=== PATIENT | male | born 1980 | race Caucasian/White ===

== ENCOUNTER 2025-08-19 11:06 | Emergency (ER) | payer OTHER, SELFPAY ==
--- OUTSIDE RECORDS SUMMARY | 2025-08-18 11:04 | XMS_ITS | Encounter Summary ---
Author Organization [facility] Address [address] [place] [address] Care Team Providers Care Director Of Quality Improvement Name Role Phone Unavailable Primary Care Provider Unavailabl e Reason for Visit * Reason Comments Knee Injury Left Encounter Details Date Type Department Care Team (Late st Contact Info) Description 08/18/2025 11:04 AM CDT - 08/18/2025 12:[address] [facility] Emergency Medicine [address] [phone] Demetrius Arshad MD [address] [phone] Redness and swelling of knee (Primary Dx); Knee injury, left, initial encounter; Elevated uric acid in blood Discharge Disposition: Acute Care Hospital Social History Tobacco Use Types Packs/Day Years Used Date Smoking Tobacco: Every Day Cigarettes Tobacco Cessation:Ready to Q uit: Not Asked; Counseling Given: Not Answered Alcohol Use Standard Drinks/Week Comments Yes 0 (1 standard drink = 0.6 oz pur e alcohol) Food Insecurity Answer Date Recorded Do you find you are eating l ess than you should because you can t pay for food? No 08/18/2025 Transportation Needs Answer Date Record ed Have you gone without health care because you didn t have a way to get there? Or worry about transportation for future doctor visits, pickle solution maker medication, etc.? No 2024 Housing Stability Answer Date Recorded Do you worry you won t have a steady place to sleep or struggle to pay rent or mortgage? No 08/18/2025 Utility Needs Answer Date Recorded Do you have difficulty payin g for utility costs (electric, water or gas bills)? No 08/18/2025 Medication Needs Answer Date Recorded Have you skipped taking medi cation due to cost or worry you can t afford new medications? No 08/18/2025 Feeling Safe Answer Date Recorded Are you in a relationship wi th someone who hurts you emotionally and/or physically? 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 Gender Identity Not on file Sexual Orientation Not on file documented as of this encounter Last Filed Vital Signs Vital Sign Reading Time Taken Comments Blood Pressure 143/99 08/18/2025 12:30 PM CDT Pulse 71 08/18/2025 12:30 PM CDT Temperature 36.4 C (97.5 F) 08/18/2025 11:07 AM CDT Respiratory Rate 15 08/18/2025 12:30 PM CDT Oxygen Saturation 96% 08/18/2025 12:30 PM CDT Inhaled Oxygen Concentration - - Weight 77.4 kg (170 lb 9.6 oz) 08/18/2025 11:07 AM CDT Height 182.9 cm (6') 08/18/2025 11:07 AM CDT Body Mass Index 23.14 08/18/2025 11:07 AM CDT documented in this encounter Medications at Time of Discharge QUEtiapine (SEROquel) 100 mg tablet Take 100 mg by mouth daily at bedtime. documented as of this encounter ED Notes * Fredo Pritchett RN - 08/18/2025 12:46 PM CDT Report called to WILLIS aMc at [facility] ER at 1228. All necessary paperwork signed. POV transfer paperwork provided to patient. Patient exited ER with and all belongings at 1242. * Fredo Pritchett RN - 08/18/2025 11:14 AM CDT Devon Yates 45 y.o. male, arrived to the ED via TRANSPORTATION: private vehicle for complaintsof Chief Complaint Patient presents with Knee Injury Left This patient arrives with his girlfriend for complaints of a Left Knee Injury. Patient ambulates toroom with limp favoring LLE. 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 States his pain has been present and unchanged since the incident. Reports he is unable to bend the knee due to pain. Pain is reported to be at the Anterior Patella wit hout radiation. Vitals taken, patient placed on monitor, clothing removed as needed per policy, privacy provided to patient. Respiratory: WDL - Regular rhythm, symmetrical chest expansion, no dyspnea, Cardiac/Circulatory: WDL - No numbness or tingling, no chest pain , Skin: WDL - Normal color for ethnicity, skin intact, patient is Alert and Oriented x4, pain scale: 6/10, findings; bleeding: without any bleeding noted. Behavior during evaluation: appropriate. Belongings secured, patient Weaponsassessment: denied possession of any weapons or firearms at this time. Patient comforted, all questions answered to the best of the staff's ability, education performed, and left patient in the room with the call light in reach, bed in lowest position, wheels locked, side rails up. * Demetrius Arshad MD - 08/18/2025 11:04 AM CDT 08/18/25 12:30 PM HISTORY OF PRESENT ILLNESS History of Present Illness This is a patient with a history of gout presenting with left knee pain. The patient sustained an injury to his left knee approximately 2 weeks ago when he attempted to dismount from his scooter, resulting in a fall. The incident occurred on a Sunday, and by the followingSunday, his knee had become swollen. Despite the swelling, he managed to work on but was unable to do so on Sunday and Sunday. Since the incident, he has experienced progressive difficulty in walking due to the pain. He also reports a specific area on his knee that is extremely sensitive to touch, causing significant discomfort. His mobility is further compromised as he is unable to bend his knee without experiencing significant pain. However, he can bear weight on the leg if it little ins straight. The patient endorsed that at times he had swollen great toe or elbow, however doesn't have any history of diagnosed gout. He reports consuming about five beers a day and smokes half a pack of cigarettes per day. He also uses marijuana. SOCIAL HISTORY The patient vapes and smokes about half a pack of cigarettes a day. He drinks about five beers a day and uses marijuana. PAST MEDICAL HISTORY REVIEWED MEDICAL: Patient has no past medical history on file. SURGICAL: Patient has no past surgical history on file. ALLERGIES Penicillins PHYSICAL EXAM INITIAL VS BP: (!) 160/109 (08/18/25 110), Heart Rate: 87 bpm (08/18/251106), Resp: 15 (08/18/251106), Pulse: 80 (08/18/25 1130), Temp: 97.5 ??F (36.4 ??C) (08/18/251106), Temp src: Temporal (08/18/251106), SpO2: 97 % (08/18/251106), Height: 6' (182.9 cm) (08/18/251106), Weight: 77.4 kg (170 lb 9.6 oz)(08/18/25 110), BMI (Calculated): 23.14 (08/18/251106) No LMP for male patient. Blood pressure (!) 143/99, pulse 71, temperature 97.5 ??F (36.4 ??C), temperature source Temporal, resp. rate 15, height 6' (1.829 m), weight 77.4 kg (170 lb 9.6 oz), SpO2 96%. Physical Exam Constitutional: General: He is in acute distress. Appearance: Normal appearance. He is normal weight. He is not ill-appearing. HENT: Mouth/Throat: Mouth: Mucous membranes are moist. Eyes: Extraocular Movements: Extraocular movements intact. Pupils: Pupils are equal, round, and reactive to light. Cardiovascular: Rate and Rhythm: Normal rate and regular rhythm. Pulses: Normal pulses. Pulmonary: Effort: Pulmonary effort is normal. No respiratory distress. Musculoskeletal: General: Swelling and tenderness present. Comments: Left knee joint swelling, erythema, heat, inability to flex the knee, unable to bear weight. DP palpable. Sensation in left foot intact. Skin: Capillary Refill: Capillary refill takes less than 2 seconds. Findings: Erythema (left knee) present. Neurological: General: No focal deficit present. Mental Status: He is alert and oriented to person, place, and time. Sensory: No sensory deficit. Gait: Gait abnormal. DIAGNOSTICS LAB: CBC WITH DIFFERENTIAL - Abnormal Result Value WBC 6.2 RBC 5.87 HEMOGLOBIN 18.4 (*) HEMATOCRIT 55.5 (*) MCV 94.5 (*) MCH 31.3 MCHC 33.2 RDW 13.2 RDW-STDEV 46.5 PLATELETS 278 MPV 9.0 (*) NEUTROPHILS 67 LYMPHOCYTES 21 (*) MONOCYTES 10 EOSINOPHILS 1 BASOPHILS 1 IMMATURE GRANULOCYTES 0 NEUTROPHIL ABSOLUTE 4.13 LYMPHOCYTE ABSOLUTE 1.27 MONOCYTE ABSOLUTE 0.60 EOSINOPHIL ABSOLUTE 0.08 BASOPHILS ABSOLUTE 0.06 IMMATURE GRANULOCYTES ABSOLUTE 0.02 COMPREHENSIVE METABOLIC PANEL - Abnormal SODIUM 140 POTASSIUM 4.7 CHLORIDE 104 CO2 29 CALCIUM 9.4 BUN 5 (*) CREATININE 0.89 GLUCOSE 87 TOTAL PROTEIN 6.3 (*) ALBUMIN 4.0 BILIRUBIN TOTAL 0.4 ALKALINE PHOSPHATASE 74 AST 14 ALT 12 GFR >60 ANION GAP 7 C-REACTIVE PROTEIN - Abnormal CRP 6.5 (*) URIC ACID - Abnormal URIC ACID 7.1 (*) SEDIMENTATION RATE - Normal ESR (SEDIMENTATION RATE) 3 LACTIC ACID - Normal LACTIC ACID 1.4 RADIOLOGY: XR KNEE 3 VW LEFT Radiologist Impression IMPRESSION: Please see below. Exam: XR KNEE 3 VW LEFT Date/Time of Exam: 08/18/2025 11:25 AM Reason For Exam: Fall. Diagnosis: See Reason for Exam. Findings: There are no comparisons. There is mild prepatellar and suprapatellar soft tissue swelling with a small joint effusion present. There is no evidence for fracture or dislocation. No periosteal reaction is noted. No lytic, blastic or destructive lesion is noted. No significant arthritic change is appreciated. No radiopaque foreign body or soft tissue gas is noted. EKG: Results Laboratory Studies Uric acid level is elevated at 7.1. WBC and ESR wnl. CRP is slightly elevated at 6.5. Imaging X-ray of the knee showed no fracture, but some fluid and inflammation of the soft tissue. Results independently interpreted by Demetrius Arshad MD PROCEDURES Procedures MEDICAL DECISION MAKING AND PLAN OF CARE Assessment & Plan Initial Assessment: Left knee pain with limited range of motion, warmth, redness, and swelling. Potential septic joint or septic arthritis. Elevated uric acid level suggesting gouty arthritis. Differential Diagnosis: - Septic arthritis: Limited range of motion, warmth, redness, swelling. Plan: Referral to creative specialist for joint fluid analysis. - Gouty arthritis: Elevated uric acid level, history of swollen large toe and elbow. Plan: Avoid alcohol and certain foods, consider medications post- orthopedic evaluation. ED Course: - X-ray: No fractures, fluid accumulation, soft tissue inflammation. - Blood test: Elevated uric acid level (7.1). - Consultation with creative specialist Dr. Gardiner. Final Assessment: Left knee pain with potential septic arthritis or gouty arthritis. X-ray showed fluid accumulation and soft tissue inflammation. Elevated uric acid level. Referral to creative specialist for further evaluation. Clinical Impression: - Left knee pain - Potential septic arthritis to rule out. - Gouty arthritis is possible Disposition: - Transfer: ER to ER by POV to tap the joint to rule out septic joint. There is possibility that this is gout flare, however without any history of gout, and the symptoms progressively getting worse and the current presentation, unable to rule out septic joint, as there is no ability to process thefluid at this facility. Patient has been accepted for [facility] ER to ER transfer. Patient is in agreement with theplan. Patient Education: Avoid alcohol and certain foods that can precipitate gout attacks. Importance of follow-up with primary doctor for gout management. Medical Decision Making Amount and/or Complexity of Data Reviewed Labs: ordered. Radiology: ordered. Clinical Scoring & Consults . New Prescriptions for this Encounter LAST VS BP: (!) 143/99 (08/18/25 1230), Heart Rate: 87 bpm (08/18/25 1107), Resp: 15 (08/18/25 1230), Pulse: 71 (08/18/25 1230), Temp: 97.5 ??F (36.4 ??C) (08/18/25 1107), Temp src: Temporal (08/18/25 1107),SpO2: 96 % (08/18/25 1230) CLINICAL IMPRESSION Diagnoses Diagnosis Comment Added By Time Added Redness and swelling of knee [M25.469, R23.8] Day, Demetrius Bashir MD 08/18/2025 12:27 PM Knee injury, left, initial encounter [S89.92XA] Demetrius Arshad MD 08/18/2025 12:27 PM Elevated uric acid in blood [E79.0] Demetrius Arshad MD 08/18/2025 12:28 PM DISPOSITION, EDUCATION AND MEDICATION RECONCILIATION Medications reconciled. See after visit summary for patient education on discharged patients. ED Disposition ED Disposition Transfer Condition Stable User Deemtrius Arshad MD Date/Time SunAug 18, 2025 12:27 PM Comment -- documented in this encounter Plan of Treatment Not on file documented as of this encounter Procedures Procedure Name Priority Date/Time Associated Diagnosis Comments LACTIC ACID Stat 08/18/2025 11:30 AM CDT CBC WITH DIFFERENTIAL Stat 08/18/2025 11:30 AM CDT SEDIMENTATION RATE Stat 08/18/2025 11 :30 AM CDT C-REACTIVE PROTEIN Stat 08/18/2025 11 :30 AM CDT URIC ACID Stat 08/18/2025 11:30 AM CDT COMPREHENSIVE METABOLIC PANEL Stat 08/18/2025 11:30 AM CDT XR KNEE 3 VW LEFT Stat 08/18/2025 11: 25 AM CDT documented in this encounter Results * (ABNORMAL) URIC ACID (08/18/2025 11:30 AM CDT) URIC ACID 7.1(H) 3.4 - 7.0 mg/dL 08/18/2025 12:20 PM CDT [facility] Blood Collection / Unknown 08/18/2025 11:30 AM CDT 08/18/2025 11:39 AM CDT us Demetrius Arshad MD CHEMISTRY ORDERABLES Final Resu lt [facility] CLIA # [id number] [address] [place] [address] [phone] * LACTIC ACID (08/18/2025 11:30 AM CDT) LACTIC ACID 1.4 <=2.0 mmol/L 08/18/2025 11:56 AM CDT [facility] Blood BLOOD SPECIMEN / Unknown Collection / Unknown 08/18/2025 11:30 AM CDT 08/18/2025 11:39 AM CDT us Demetrius Arshad MD CHEMISTRY ORDERABLES Final Resu lt Performing Organization Address City/[facility]/ZIP Co de Phone Number [facility] CLIA # [id number] [address] [place] [phone] * (ABNORMAL) C-REACTIVE PROTEIN (08/18/2025 11:30 AM CDT) Pathologist [facility] CRP 6.5(H) <5.0 mg/L 08/18/2025 12:00 PM CDT [facility] Blood Collection / Unknown 08/18/2025 11:30 AM CDT 08/18/2025 11:39 AM CDT us Demetrius Arshad MD CHEMISTRY ORDERABLES Final Resu lt [facility] CLIA # [id number] [address] [place] [phone] * (ABNORMAL) COMPREHENSIVE METABOLIC PANEL (08/18/2025 11:30 AM CDT) Pathologist [facility] SODIUM 140 136 - 145 mmol/L 08/18/2025 12:00 PM CDT [facility] POTASSIUM 4.7 3.5 - 5.1 mmol/L 08/18/2025 12:00 PM CDT [facility] CHLORIDE 104 98 - 107 mmol/L 08/18/2025 12:00 PM [facility] CO2 29 22 - 29 mmol/L 08/18/2025 12:00 PM [facility] CALCIUM 9.4 8.6 - 10.0 mg/dL 08/18/2025 12:00 PM [facility] BUN 5(L) 6 - 20 mg/dL 08/18/2025 12:00 PM [facility] CREATININE 0.89 0.67 - 1.17 mg/dL 08/18/2025 12:00 PM [facility] GLUCOSE 87 74 - 99 mg/dL 08/18/2025 12:00 PM [facility] TOTAL PROTEIN 6.3(L) 6.6 - 8.7 g/dL 08/18/2025 12:00 PM [facility] ALBUMIN 4.0 3.5 - 5.2 g/dL 08/18/2025 12:00 PM [facility] BILIRUBIN TOTAL 0.4 0.0 - 1.2 mg/dL 08/18/2025 12:00 PM [facility] ALKALINE PHOSPHATASE 74 40 - 129 U/L 08/18/2025 12:00 PM [facility] AST 14 0 - 50 U/L 08/18/2025 12:00 PM [facility] ALT 12 0 - 50 U/L 08/18/2025 12:00 PM [facility] GFR >60 >=60 mL/min/1.7 3 sq meter 08/18/2025 12:00 PM [facility] Comment:eGFR calculated with 2020 CKD-EPI equation. Vegetarian diet, extremely high or low muscle mass, and may affect results. Cystatin C with Glomerular Filtration Rate is a suitable alternative for these patients. ANION GAP 7 5 - 20 mmol/L 08/18/2025 12:00 PM [facility] Blood Collection / Unknown 08/18/2025 11:30 AM CDT 08/18/2025 11:39 AM CDT Demetrius Arshad MD CHEMISTRY ORDERABLES Final Resu lt [facility] CLIA # [id number] [address] [place] [address] [phone] * SEDIMENTATION RATE (08/18/2025 11:30 AM CDT) ESR (SEDIMENTATION RATE) 3 0 - 15 mm/Hr 08/18/2025 11:51 AM CDT [facility] Blood Collection / Unknown 08/18/2025 11:30 AM CDT 08/18/2025 11:39 AM CDT [facility] - 08/18/2025 11:51 AM CDT Tube Lot: #[id number] Exp Date: 10/28/2026 QC1 LOT [id number] EXP.11/02/2025 QC2 LOT [id number] EXP.11/02/2025 Demetrius Arshad MD HEMATOLOGY ORDERABLES Final Res ult Performing Organization Address [facility]/ZIP Co de Phone Number [facility] CLIA # [id number] [address] [place] [phone] * (ABNORMAL) CBC WITH DIFFERENTIAL (08/18/2025 11:30 AM CDT) Pathologist [facility] WBC 6.2 4.2 - 9.1 K/uL 08/18/2025 11:46 AM CDT [facility] RBC 5.87 4.63 - 6.08 M/uL 08/18/2025 11:46 AM CDT [facility] HEMOGLOBIN 18.4(H) 13.7 - 17.5 g/dL 08/18/2025 11:46 AM T [facility] HEMATOCRIT 55.5(H) 40.1 - 51.0 % 08/18/2025 11:46 AM [facility] MCV 94.5(H) 79.0 - 92.2 fL 08/18/2025 11:46 AM CDT [facility] MCH 31.3 25.7 - 32.2 pg 08/18/2025 11:46 AM [facility] MCHC 33.2 32.3 - 36.5 g/dL 08/18/2025 11:46 AM [facility] RDW 13.2 11.0 - 14.5 % 08/18/2025 11:46 AM [facility] RDW-STDEV 46.5 36.9 - 56.9 fL 08/18/2025 11:46 AM [facility] PLATELETS 278 130 - 400 K/uL 08/18/2025 11:46 AM [facility] MPV 9.0(L) 10.0 - 14.8 fL 08/18/2025 11:46 AM [facility] NEUTROPHILS 67 34 - 68 % 08/18/2025 11:46 AM [facility] LYMPHOCYTES 21(L) 22 - 53 % 08/18/2025 11:46 AM [facility] MONOCYTES 10 5 - 12 % 08/18/2025 11:46 AM [facility] EOSINOPHILS 1 1 - 7 % 08/18/2025 11:46 AM [facility] BASOPHILS 1 0 - 1 % 08/18/2025 11:46 AM [facility] IMMATURE GRANULOCYTES 0 % 08/18/2025 11:46 AM [facility] NEUTROPHIL ABSOLUTE 4.13 1.78 - 5.38 K/uL 08/18/2025 11:46 AM [facility] LYMPHOCYTE ABSOLUTE 1.27 1.20 - 3.40 K/uL 08/18/2025 11:46 AM [facility] MONOCYTE ABSOLUTE 0.60 0.30 - 0.82 K/uL 08/18/2025 11:46 AM [facility] EOSINOPHIL ABSOLUTE 0.08 0.04 - 0.54 K/uL 08/18/2025 11:46 AM [facility] BASOPHILS ABSOLUTE 0.06 0.01 - 0.08 K/uL 08/18/2025 11:46 AM [facility] IMMATURE GRANULOCYTES ABSOLUTE 0.02 K/uL 08/18/2025 11:46 AM [facility] Blood Collection / Unknown 08/18/2025 11:30 AM CDT 08/18/2025 11:39 AM CDT us Demetrius Arshad MD HEMATOLOGY ORDERABLES Final Res ult [facility] CLIA # [id number] [address] [place] [phone] * XR KNEE 3 VW LEFT (08/18/2025 11:25 AM CDT) Anatomical Region Laterality Modality Lower Extremity Computed Radiogr aphy 08/18/2025 11:2 5 AM CDT Impressions 08/18/2025 11:30 AM CDT IMPRESSION: Please see below. Exam: XR KNEE 3 VW LEFT Date/Time of Exam: 08/18/2025 11:25 AM Reason For Exam: Fall. Diagnosis: See Reason for Exam. Findings: There are no comparisons. There is mild prepatellar and suprapatellar soft tissue swelling with a small joint effusion present. There is no evidence for fracture or dislocation. No periosteal reaction is noted. No lytic, blastic or destructive lesion is noted. No significant arthritic change is appreciated. No radiopaque foreign body or soft tissue gas is noted. Narrative Procedure Note Aparna Mobley MD - 08/18/2025 IMPRESSION: Please see below. Exam: XR KNEE 3 VW LEFT Date/Time of Exam: 08/18/2025 11:25 AM Reason For Exam: Fall. Diagnosis: See Reason for Exam. Findings: There are no comparisons. There is mild prepatellar and suprapatellar soft tissue swelling with a small joint effusion present. There is no evidence for fracture or dislocation. No periosteal reaction is noted. No lytic, blastic or destructive lesion is noted. No significant arthritic change is appreciated. No radiopaque foreign body or soft tissue gas is noted. us Demetrius Arshad MD DIAGNOSTIC IMAGING ORDERABLES F inal Result documented in this encounter Visit Diagnoses Diagnosis Redness and swelling of knee- Primary Knee injury, left, initial encounter Elevated uric acid in blood Other abnormal blood chemistry documented in this encounter
--- OUTSIDE RECORDS SUMMARY | 2025-08-18 19:58 | XMS_ITS | Encounter Summary ---
Author Organization [facility] Address [address] [place] [address] Care Team Providers Care Beef Specialist Name Role Phone Unavailable Primary Care Provider Unavailabl e Reason for Visit * Reason Comments Knee Injury Pt was sent here by Bronson Lopez due to left knee injury they want an ortho consult on. Encounter Details Date Type Department Care Team (Late st Contact Info) Description 08/18/2025 7:58 PM CDT - 08/18/2025 7:59 PM CDT Emergency [facility] Emergency Department [address] [place] [address] Discharge Disposition: Eloped After Seeing Provider Social History Tobacco Use Types Packs/Day Years Used Date Smoking Tobacco: Every Day Cigarettes Alcohol Use Standard Drinks/Week Comments Yes 0 [...] worry about transportation for future doctor visits, olive picker medication, etc.? 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 Gender Identity Not on file Sexual Orientation Not on file documented as of this encounter Last Filed Vital Signs Vital Sign Reading Time Taken Comments Blood Pressure 157/120 08/18/2025 2:44 PM CDT Pulse - - Temperature 36.5 C (97.7 F) 08/18/2025 2:44 PM CDT Respiratory Rate 18 08/18/2025 2:44 PM CDT Oxygen Saturation 99% 08/18/2025 2:44 PM CDT Inhaled Oxygen Concentration - - Weight 77.1 kg (170 lb) 08/18/2025 2:44 PM CDT Height 182.9 cm (6') 08/18/2025 2:44 PM CDT Body Mass Index 23.06 08/18/2025 2:44 PM CDT documented in this encounter Medications at Time of Discharge QUEtiapine (SEROquel) 100 mg tablet Take 100 mg by mouth daily at bedtime. documented as of this encounter ED Notes * Leticia Funez RN - 08/18/2025 7:57 PM CDT Patient called in all three waiting rooms multiple times with no answer. Patient did not notify staff that they were leaving. Refusal of services form signed. * Leticia Funez RN - 08/18/2025 7:50 PM CDT Nax 3 @ 1950 * Melquiades Flynn APRN - 08/18/2025 2:47 PM CDT 45-year-old male presents for evaluation of left knee pain and swelling x 4 days. States he fell off a scooter and sustained immediate pain to his left knee. Notes worsening pain and swelling since then. Patient seen at another facility, where x-rays were performed, and he was directed to present to the emergency department for concern of septic joint. Vitals: 08/18/25 1444 BP: (!) 157/120 Resp: 18 Temp: 97.7 ??F (36.5 ??C) SpO2: 99% Exam: Constitutional: Alert and oriented with no apparent distress. Respiratory: No obvious signs of respiratory distress. Neuro: Alert and oriented X3. Psych: Cooperative. Normal mood and affect. Musculoskeletal: Left knee erythematous, swollen, warm, and tender. Pain Scale 6/10 A medical screening exam was initiated in our triage area tailored to the patient's chief complaint. Focused diagnostics and therapies have been initiated. ER staff will continue and expand as appropriate to help identify any life or limb threatening conditions while awaiting an exam room in the main area of the ED. Continued care, evaluation and management of this patient will be performed throughout their stay. I advised patient to inform front desk receptionist nurse of any change in symptoms. The patient's evaluation and anticipated ongoing care plan was discussed in detail with them to make sure theyare aware of what to expect during their stay. documented in this encounter Plan of Treatment Not on file documented as of this encounter Visit Diagnoses Not on filedocumented in this encounter
[2025-08-19 11:15] VITALS: BP 155/105; PULSE 82; TEMP 36.5; O2SAT 97; BMI 23.0
--- NOTE | 2025-08-19 11:24 | XR_ITS ---
WS: [id number] Left knee, 3 views, 08/19/2025 Clinical Data: injury Comparison: None. Findings: No fractures or dislocations are seen. There is minimal medial joint compartment narrowing. The patella is intact. The soft tissues are unremarkable. XR/XR knee LT 3V* [id number] Impression: 1. Negative for fracture. 2. Medial joint compartment narrowing.
--- NOTE | 2025-08-19 11:25 | ED_ITS ---
HPI - Extremity Problem General: Chief complaint: Extremity Injury, Lower Stated complaint: L knee pain Time Seen by Provider: 08/19/25 11:21 Source: patient Mode of arrival: ambulatory Limitations: no limitations History of Present Illness: 45-year-old male states that he fell off his scooter roughly 2 weeks ago and twisted his left knee. He states has been having left knee pain since then along with swelling. States that hurts to ambulate on it is improved with rest rates his pain a 2 out of 10 currently denies any other injuries from the fall denies any ankle or hip pain Related Data Allergies Allergy/AdvReac Type Severity Reaction Status Date / Time Penicillins Allergy Unknown Verified 08/19/25 11:20 Review of Systems Musc: Reports: extremity pain Physical Exam Const: COMMON NORMALS: no acute distress, patient oriented x3 and healthy appearing HENMT: COMMON NORMALS: normocephalic and atraumatic HEAD & SCALP: normocephalic and atraumatic Eye: COMMON NORMALS: conjunctivae normal CONJUNCTIVA: Yes conjunctivae normal Neck/C-Spine: COMMON NORMALS: full ROM and supple Chest: COMMONS NORMALS: normal inspection of the chest Resp: COMMON NORMALS: normal respiratory effort Cardio: COMMON NORMALS: regular rate RATE: regular rate Extremity: NARRATIVE EXTREMITY EXAM: Tenderness noted to left knee with swelling no warmth to touch no pain with range of motion Neuro: COMMON NORMALS: patient oriented x3, moves all extremities and no focal motor deficits Psych: COMMON NORMALS: mental status grossly normal, Normal thought process present and cooperative THOUGHT PROCESS: Normal thought process present Skin: COMMON NORMALS: no rashes or lesions noted and no wounds GENERAL SKIN EXAM: no rashes or lesions noted Course Vital Signs: Vital signs: Vital Signs Temperature 97.7 F 08/19/25 11:15 Pulse Rate 82 08/19/25 11:15 Blood Pressure 141/111 08/19/25 11:27 Pulse Oximetry 99 08/19/25 11:27 Oxygen Delivery Me thod Room Air 08/19/25 11:27 MDM - Extremity (Nontraumatic) Medical Decision Making Patient presents here with left knee sprain from a fall. Differential includes septic joint, tibial plateau fracture. X-ray here is normal no signs of fracture. He has full range of motion with no pain no warmth no signs of septic joint here. Patient likely has a knee sprain with possible ligamentous injury will place him in a knee immobilizer will get him crutches he is to only weight- bear as tolerated we will get him follow-up with orthopedics I did go over his imaging and follow-up with him he is return if worsening he understands agrees to plan Medical Records I reviewed the patient's medical records. All radiology interpretation(s) finalized by discharge ED provider radiology interpretation(s): xr L knee: no acute fx Discharge Plan Discharge Patient Disposition: Home Clinical Impression: Left knee sprain Qualifiers: Encounter type: initial encounter Involved ligament of knee: unspecified ligament Qualified Code(s): S83.92XA - Sprain of unspecified site of left knee, initial encounter Condition: Stable Discharge Orders: Discharge ED (Routine); Ordered 08/19/25 Ordered By: Faustino Oconnor Referrals: Deshawn Fragoso MD [Physician, Orthopedics] - 4-7 days Discharge Diet: Advance as tolerated Discharge Activity: Use walker/crutches as instructed Patient Instructions: Knee Sprain (ED) Print Language: Ethiopian Coding Level of Care Code ED Eviscerator for Nano Smith
[2025-08-19 11:27] VITALS: BP 141/111; O2SAT 99
[2025-08-19] MEDS: HYDROcodone-acetaminophen 5-325 mg Tablet 1 TAB PO (11:58)
[2025-08-19 12:01] VITALS: BP 136/101; PULSE 78; RESP 16; O2SAT 100
--- OUTSIDE RECORDS SUMMARY | 2025-08-19 12:42 | XMS_ITS | Encounter Summary ---
Author Organization [facility] Address [address] 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
--- OUTSIDE RECORDS SUMMARY | 2025-08-19 12:42 | XMS_ITS | Encounter Summary ---
Author Organization [facility] Address [address] [place] [address] Care Team Providers Care Digital Advertising Specialist Name Role Phone Unavailable Primary Care Provider Unavailabl e Encounter Details Date Type Department Care Team (Latest Contact Info) Description 03/23/2005 Outpatient Historical [facility] [address] 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
--- OUTSIDE RECORDS SUMMARY | 2025-08-19 12:42 | XMS_ITS | Encounter Summary ---
Author Organization [facility] Address [address] [place] [address] Care Team Providers Care Set Up Mechanic Name Role Phone Unavailable Primary Care Provider Unavailabl e Encounter Details Date Type Department Care Team (Late st Contact Info) Description 03/23/2005 Outpatient Historical [facility] [address] 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
--- OUTSIDE RECORDS SUMMARY | 2025-08-19 12:42 | XMS_ITS | Encounter Summary ---
Author Organization [facility] Address [address] [place] [address] Care Team Providers Care Gripper Installer Name Role Phone Unavailable Primary Care Provider Unavailabl e Reason for Visit * Reason Comments Med Refill Encounter Details Date Type Department Care Team (Late Contact Info) Description 05/09/2024 Refill [facility] [address] [place] [address] Cely Gould FNP [address] [place] [address] Episodic mood disorder (HCC) Social History Tobacco Use Types Packs/Day Years Used Date Smoking Tobacco: Every Day Cigarettes Smokeless Tobacco: Never Alcohol Use Standard Drinks/Week Comments Defer 0 (1 standard drink = 0.6 oz pur e alcohol) PHQ-2 Answer Date Recorded PHQ-2 Score 6 01/23/2024 Sex and Gender Information Value Date Recorded Sex Assigned at Not on file Legal Sex Male 1:18 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 Gender Identity Not on file Sexual Orientation Not on file documented as of this encounter Plan of Treatment Upcoming Encounters Date Type Department Care Team (Late st Contact Info) Description 09/02/2025 3:00 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 Office Visit [facility] [address] [place] [id number] Cely Gould FNP [address] [place] [phone] (work) documented as of this encounter Visit Diagnoses Diagnosis Episodic mood disorder Unspecified episodic mood disorder documented in this encounter Additional Health Concerns Health Status Noted Date Alive and well 02/10/2024 Assessment Noted Time PHQ-9 Depression Total Score: 13 024 2:45 PM CDT A fall risk assessment has been complete d for the patient 02/10/2024 3:57 PM CDT documented as of this encounter
--- OUTSIDE RECORDS SUMMARY | 2025-08-19 12:42 | XMS_ITS | Clinical Summary ---
Author Organization [facility] Address [address] [place] [address] Care Team Providers Care Binding Folder Machine Name Role Phone Unavailable Primary Care Provider Unavailabl e Medications prazosin (MINIPRESS) 1 mg capsuleIndicati ons:Nightmares Take 1 capsule (1 mg total) by mouth nightly. 30 capsule 2 07/09/20 25 Active QUEtiapine (SEROQUEL) 100 mg tabletIndicatio ns:Episodic mood disorder Take 1 tablet (100 mg total) by mouth nightly. 30 tablet 5 07/09/20 25 Active FLUoxetine (PROzac) 10 mg capsuleIndicati ons:Anxiety Take 1 capsule (10 mg) po am x one week, then take 2 capsules (20mg) po am 60 capsule 1 07/09/20 25 Active topiramate (TOPAMAX) 50 mg tabletIndicatio ns:Episodic mood disorder,Alcoho l dependence with unspecified alcohol-induced disorder (HCC) TAKE ONE TABLET BY MOUTH TWICE DAILY IN THE MORNING & EVENING DIRECTED 60 tablet 08/16/20 25 Active topiramate (TOPAMAX) 50 mg tabletIndicatio ns:Episodic mood disorder,Alcoho l dependence with unspecified alcohol-induced disorder (HCC) Take 1 tablet (50 mg total) by mouth in the morning and 1 tablet (50 mg total) in the evening. 60 tablet 07/09/20 25 025 Discontinued Active Problems No known active problems Encounters Date Type Department Care Team Description 08/14/2025 Refill [facility] [address] [place] [address] [address] [place] [address] Luis Fernando Cely, DEMETRIA Episodic mood disorder; Alcohol dependence with unspecified alcohol-induced disorder (HCC) 07/09/2025 11:30 AM CDT Office Visit [facility] [address] [place], [place] [address] [address] Cely Gould, DISTRICT FIRE MANAGEMENT OFFICER Nightmares (Primary Dx); Episodic mood disorder (HCC); Alcohol dependence with unspecified alcohol-induced disorder (HCC); Anxiety 07/09/2025 Travel from Last 3 Months Immunizations Immunization Administration Dates Next Due DTP 07/24/1983, 0,1978,1977,1978 DTaP (INFANRIX) 07/24/1983, 0,1978,1977,1978 Hep A, adult (HAVRIX, VAQTA) 07/26/2005 Hep B, adult (RECOMBIVAX HB, ENGERIX-B) 08/30/2005,07/26/2005 MMR (M-M-R II) 05/27/1979 Td (adult) (TDVAX) 12/12/2004,07/07/1993 polio, unspecified 07/24/1983, 0,1978,1977 Social History Tobacco Use Types Packs/Day Years Used Date Smoking Tobacco: Every Day Cigarettes 0.5 25.8 Started: 1999 Smokeless Tobacco: Never Tobacco Cessation:Ready to Q uit: No; Counseling Given: Yes Comments:Patient encouraged to stop smoking Alcohol Use Standard Drinks/Week Comments Defer 0 (1 standard drink = 0.6 oz pur e alcohol) PHQ-2 Answer Date Recorded PHQ-2 Score 0 07/09/2025 Sex and Gender Information Value Date Recorded Sex Assigned at Not on file Legal Sex Male 1:18 PM LAY OUT DRAFTER Gender Identity Not on file Sexual Orientation Not on file Last Filed Vital Signs Vital Sign Reading Time Taken Comments Blood Pressure 140/94 01/23/2024 2:44 PM CDT Pulse 92 01/23/2024 2:44 PM CDT Temperature 36.1 C (96.9 F) 01/23/2024 2:44 PM CDT Respiratory Rate - - Oxygen Saturation - - Inhaled Oxygen Concentration - - Weight 84.5 kg (186 lb 3.2 oz) 01/23/2024 2:44 P M CDT Height 182.9 cm (6') 01/23/2024 2:44 PM CDT Body Mass Index 25.25 01/23/2024 2:44 PM CDT Plan of Treatment Upcoming Encounters Date Type Department Care Team (Late st Contact Info) Description 09/02/2025 3:00 PM LAY OUT DRAFTER Office Visit [facility] [place] - [facility]al [facility] [address] [place] [phone] Cely Gould, DISTRICT FIRE MANAGEMENT OFFICER [address] [place] [phone] Health Maintenance Due Date Last Done Comments Annual Wellness 1978 Pneumococcal Vaccine: Pediatrics (0 to 5 Years) and At-Risk Patients (6 to 49 Years) (1 of 2 - PCV) 1997 Hepatitis B Vaccines (3 of 3 - 19+ 3-dose series) 01/23/2006 08/30/2005, 07/26/2005 Td, Tdap Vaccines Adult 12/12/2014 12/12/2004, 07/07 Colonoscopy 2023 Influenza Vaccination (#1) 2025 IPV Vaccines Completed 07/24/1983, 10/30, 1978, Additional history exists Hepatitis A Vaccines Aged Out 07/26/2005 No long er eligible based on patient's age to complete this topic HIB Vaccines Aged Out No longer eligi ble based on patient's age to complete this topic HPV Vaccines Aged Out No longer eligi ble based on patient's age to complete this topic Meningococcal Vaccines Aged Out No lo nger eligible based on patient's age to complete this topic RSV Mab Nirsevimab (Beyfortus) <20 months Aged Out No longer eligibl e based on patient's age to complete this topic Rotavirus Vaccines Aged Out No longer eligible based on patient's age to complete this topic Insurance [employer]TER
--- OUTSIDE RECORDS SUMMARY | 2025-08-19 12:42 | XMS_ITS | Encounter Summary ---
Author Organization [employer] [facility] Address [address] [place] [address] Care Team Providers Care Staff Midwife Name Role Phone Unavailable Primary Care Provider Unavailabl e Encounter Details Date Type Department Care Team (Late st Contact Info) Description 02/04/2005 Inpatient Historical HIS IN BED Wood Conley MD [address] [place] [phone] CLOSE SKULL BASE FX-COMA NOS (CMS/HCC) (Primary Dx) Social History Tobacco Use Types Packs/Day Years Used Date Smoking Tobacco: Never Assessed Sex and Gender Information Value Date Recorded Sex Assigned at Not on file 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 Gender Identity Not on file Sexual Orientation Not on file documented as of this encounter Plan of Treatment Not on file documented as of this encounter Procedures Procedure Name Priority Date/Time Associated Diagnosis Comments CBC WITH DIFFERENTIAL Routine 02/06/2005 6:31 AM CDT PHOSPHORUS Routine 02/06/2005 6:31 AM CDT MAGNESIUM LEVEL Routine 02/06/2005 6:31 AM CDT BASIC METABOLIC PANEL Routine 02/06/2005 6:31 AM CDT CBC WITH DIFFERENTIAL Routine 02/04/2005 2:26 PM CDT POC BLOOD GAS, LYTES AND H+H Routine 02/04/2005 7:29 AM CDT CBC WITH DIFFERENTIAL Routine 02/04/2005 6:41 AM CDT BASIC METABOLIC PANEL Routine 02/04/2005 6:41 AM CDT POC BLOOD GAS, LYTES AND H+H Routine 02/04/2005 2:55 AM CDT DIFFERENTIAL, MANUAL Routine 02/04/2005 12:49 AM CDT CBC WITH DIFFERENTIAL Routine 02/04/2005 12:49 AM CDT PROTIME-INR Routine 02/04/2005 12:49 AM CDT ETHANOL LEVEL Routine 02/04/2005 12:49 AM CDT BASIC METABOLIC PANEL Routine 02/04/2005 12:49 AM CDT POC BLOOD GAS, LYTES AND H+H Routine 02/04/2005 12:47 AM CDT documented in this encounter Results * (ABNORMAL) CBC WITH DIFFERENTIAL (02/06/2005 6:31 AM CDT) WBC 9.7 4.5 - 11.0 K/ul INTERFACE SYSTEM RBC 4.16(L) 4.60 - 6.20 Mil/ul INTERFACE SYSTEM HEMOGLOBIN 13.0(L) 14.0 - 18.0 g/dL INTERFACE SYSTEM HEMATOCRIT 38.2(L) 41.0 - 53.0 % INTERFACE SYSTEM MCV 91.8 84.0 - 103.0 Fl INTERFACE SYSTEM MCH 31.3 27.0 - 34.0 pg INTERFACE SYSTEM MCHC 34.0 30.0 - 35.0 g/dL INTERFACE SYSTEM RDW 12.2 11.0 - 14.5 percent(in active) INTERFACE SYSTEM PLATELETS 268 140 - 440 K/ul INTERFACE SYSTEM MPV 9.9 8.9 - 12.8 Fl INTERFACE SYSTEM NEUTROPHILS 79.1(H) 42.2 - 75.2 percent(in active) INTERFACE SYSTEM LYMPHOCYTES 9.2(L) 24.0 - 44.0 percent(in active) INTERFACE SYSTEM MONOCYTES 10.6(H) 2.0 - 10.0 percent(in active) INTERFACE SYSTEM EOSINOPHILS 0.8 0.0 - 7.0 % INTERFACE SYSTEM BASOPHILS 0.3 0.0 - 1.0 percent(in active) INTERFACE SYSTEM NEUTROPHIL ABSOLUTE 7.7 2.0 - 8.0 K/uL INTERFACE SYSTEM LYMPHOCYTE ABSOLUTE 0.9(L) 1.2 - 4.0 K/ul INTERFACE SYSTEM MONOCYTE ABSOLUTE 1.0(H) 0.1 - 0.6 K/ul INTERFACE SYSTEM EOSINOPHIL ABSOLUTE 0.1 0.0 - 0.7 K/ul INTERFACE SYSTEM BASOPHILS ABSOLUTE 0.0 0.0 - 0.2 K/ul INTERFACE SYSTEM 02/06/2005 6:31 AM CDT us Wood Conley MD HEMATOLOGY ORDERABLES Final Result Performing Organization Address City/[facility] de Phone Number INTERFACE SYSTEM Refer to clinic/hospital department * PHOSPHORUS (02/06/2005 6:31 AM CDT) PHOSPHORUS 3.1 2.5 - 4.6 mg/dL (inactive) INTERFACE SYSTEM 02/06/2005 6:31 AM CDT Wood Conley MD CHEMISTRY ORDERABLES Final Result Performing Organization Address [facility] de Phone Number INTERFACE SYSTEM Refer to clinic/hospital department * MAGNESIUM LEVEL (02/06/2005 6:31 AM CDT) MAGNESIUM 1.9 1.6 - 2.3 mg/dL INTERFACE SYSTEM 02/06/2005 6:31 AM CDT Wood Conley MD CHEMISTRY ORDERABLES Final Result Performing Organization Address City/[facility] de Phone Number INTERFACE SYSTEM Refer to clinic/hospital department * (ABNORMAL) BASIC METABOLIC PANEL (02/06/2005 6:31 AM CDT) GLUCOSE 100 70 - 110 mg/dL INTERFACE SYSTEM BUN 6(L) 9 - 20 mg/dL INTERFACE SYSTEM CREATININE 0.8 0.7 - 1.5 mg/dL (inactive) INTERFACE SYSTEM SODIUM 138 136 - 145 mEq/L INTERFACE SYSTEM POTASSIUM 3.9 3.5 - 5.0 mEq/L INTERFACE SYSTEM CHLORIDE 101 95 - 110 mEq/L INTERFACE SYSTEM CO2 27 22 - 32 mmol/l INTERFACE SYSTEM ANION GAP 14 9 - 20 mEq/L INTERFACE SYSTEM OSMOLALITY, CALCULATED 282 275 - 295 mOsm/Kg INTERFACE SYSTEM CALCIUM 8.6 8.4 - 10.5 mg/dL INTERFACE SYSTEM 02/06/2005 6:31 AM CDT us Wood Conley MD CHEMISTRY ORDERABLES Final Result INTERFACE SYSTEM Refer to clinic/hospital department * (ABNORMAL) CBC WITH DIFFERENTIAL (02/04/2005 2:26 PM CDT) WBC 9.6 4.5 - 11.0 K/ul INTERFACE SYSTEM RBC 4.37(L) 4.60 - 6.20 Mil/ul INTERFACE SYSTEM HEMOGLOBIN 13.7(L) 14.0 - 18.0 g/dL INTERFACE SYSTEM HEMATOCRIT 40.0(L) 41.0 - 53.0 % INTERFACE SYSTEM MCV 91.5 84.0 - 103.0 Fl INTERFACE SYSTEM MCH 31.4 27.0 - 34.0 pg INTERFACE SYSTEM MCHC 34.3 30.0 - 35.0 g/dL INTERFACE SYSTEM RDW 12.4 11.0 - 14.5 percent(in active) INTERFACE SYSTEM PLATELETS 249 140 - 440 K/ul INTERFACE SYSTEM MPV 9.7 8.9 - 12.8 Fl INTERFACE SYSTEM NEUTROPHILS 77.5(H) 42.2 - 75.2 percent(in active) INTERFACE SYSTEM LYMPHOCYTES 11.0(L) 24.0 - 44.0 percent(in active) INTERFACE SYSTEM MONOCYTES 11.0(H) 2.0 - 10.0 percent(in active) INTERFACE SYSTEM EOSINOPHILS 0.3 0.0 - 7.0 % INTERFACE SYSTEM BASOPHILS 0.2 0.0 - 1.0 percent(in active) INTERFACE SYSTEM NEUTROPHIL ABSOLUTE 7.5 2.0 - 8.0 K/uL INTERFACE SYSTEM LYMPHOCYTE ABSOLUTE 1.1(L) 1.2 - 4.0 K/ul INTERFACE SYSTEM MONOCYTE ABSOLUTE 1.1(H) 0.1 - 0.6 K/ul INTERFACE SYSTEM EOSINOPHIL ABSOLUTE 0.0 0.0 - 0.7 K/ul INTERFACE SYSTEM BASOPHILS ABSOLUTE 0.0 0.0 - 0.2 K/ul INTERFACE SYSTEM 02/04/2005 2:26 PM CDT Wood Conley MD HEMATOLOGY ORDERABLES Final Result Performing Organization Address [facility] de Phone Number INTERFACE SYSTEM Refer to clinic/hospital department * (ABNORMAL) POC ISTAT EG 7+ (02/04/2005 7:29 AM CDT) SPECIMEN TYPE Arterial INTERF JOVANNA SYSTEM Comment: Tidal volume: 700 PEEP: 05 Rate: 12 Pulse OX: 100 FIO2 40 INTERFACE SYSTEM TEMPERATURE 99.7 DegC INTERFAC E SYSTEM PH 7.36 7.35 - 7.45 Unit INTERFACE SYSTEM PH TEMP CORRECT 7.36 7.35 - 7.45 Unit INTERFACE SYSTEM PCO2 POC 40 35 - 45 mmHg INTERFACE SYSTEM PCO2 TEMP CORRECT 41 35 - 45 mmHg INTERFACE SYSTEM PO2 151(H) 80 - 105 mmHg INTERFACE SYSTEM PO2 TEMP CORRECT 154(H) 80 - 105 mmHg INTERFACE SYSTEM HCO3 (CALC) POC 22.7 22.0 - 26.0 mmol/l INTERFACE SYSTEM BASE EXCESS -3(L) -2 - 3 mmol/l INTERFACE SYSTEM HEMOGLOBIN POC 13.3(L) 13.5 - 18.0 g/dL INTERFACE SYSTEM HEMATOCRIT ABG 39 38 - 51 % INTER FACE SYSTEM O2 SATURATION 99(H) 95 - 98 % INTERF JOVANNA SYSTEM TCO2 (CALC) POC 24 23 - 27 mmol/l INTERFACE SYSTEM SODIUM 140 138 - 146 mEq/L INTERFACE SYSTEM POTASSIUM 3.8 3.5 - 4.9 mEq/L INTERFACE SYSTEM CALCIUM IONIZED 1.20 1.12 - 1.32 mmol/l INTERFACE SYSTEM 02/04/2005 7:29 AM CDT Wood Conley MD POINT OF CARE TESTING COM F inal Result Performing Organization Address City/[facility] Co de Phone Number INTERFACE SYSTEM Refer to clinic/hospital department * (ABNORMAL) BASIC METABOLIC PANEL (02/04/2005 6:41 AM CDT) GLUCOSE 92 70 - 110 mg/dL INTERFACE SYSTEM BUN 5(L) 9 - 20 mg/dL INTERFACE SYSTEM CREATININE 0.8 0.7 - 1.5 mg/dL (inactive) INTERFACE SYSTEM SODIUM 141 136 - 145 mEq/L INTERFACE SYSTEM POTASSIUM 3.8 3.5 - 5.0 mEq/L INTERFACE SYSTEM CHLORIDE 109 95 - 110 mEq/L INTERFACE SYSTEM CO2 21(L) 22 - 32 mmol/l INTERFACE SYSTEM ANION GAP 15 9 - 20 mEq/L INTERFACE SYSTEM OSMOLALITY, CALCULATED 286 275 - 295 mOsm/Kg INTERFACE SYSTEM CALCIUM 7.9(L) 8.4 - 10.5 mg/dL INTERFACE SYSTEM 02/04/2005 6:41 AM CDT us Wood Conley MD CHEMISTRY ORDERABLES Final Result INTERFACE SYSTEM Refer to clinic/hospital department * (ABNORMAL) CBC WITH DIFFERENTIAL (02/04/2005 6:41 AM CDT) WBC 12.6(H) 4.5 - 11.0 K/ul INTERFACE SYSTEM RBC 4.42(L) 4.60 - 6.20 Mil/ul INTERFACE SYSTEM HEMOGLOBIN 14.0 14.0 - 18.0 g/dL INTERFACE SYSTEM HEMATOCRIT 40.2(L) 41.0 - 53.0 % INTERFACE SYSTEM MCV 91.0 84.0 - 103.0 Fl INTERFACE SYSTEM MCH 31.7 27.0 - 34.0 pg INTERFACE SYSTEM MCHC 34.8 30.0 - 35.0 g/dL INTERFACE SYSTEM RDW 12.4 11.0 - 14.5 percent(in active) INTERFACE SYSTEM PLATELETS 279 140 - 440 K/ul INTERFACE SYSTEM MPV 9.6 8.9 - 12.8 Fl INTERFACE SYSTEM NEUTROPHILS 79.4(H) 42.2 - 75.2 percent(in active) INTERFACE SYSTEM LYMPHOCYTES 10.9(L) 24.0 - 44.0 percent(in active) INTERFACE SYSTEM MONOCYTES 9.4 2.0 - 10.0 percent(in active) INTERFACE SYSTEM EOSINOPHILS 0.1 0.0 - 7.0 % INTERFACE SYSTEM BASOPHILS 0.2 0.0 - 1.0 percent(in active) INTERFACE SYSTEM NEUTROPHIL ABSOLUTE 10.0(H) 2.0 - 8.0 K/uL INTERFACE SYSTEM LYMPHOCYTE ABSOLUTE 1.4 1.2 - 4.0 K/ul INTERFACE SYSTEM MONOCYTE ABSOLUTE 1.2(H) 0.1 - 0.6 K/ul INTERFACE SYSTEM EOSINOPHIL ABSOLUTE 0.0 0.0 - 0.7 K/ul INTERFACE SYSTEM BASOPHILS ABSOLUTE 0.0 0.0 - 0.2 K/ul INTERFACE SYSTEM 02/04/2005 6:41 AM CDT Wood Conley MD HEMATOLOGY ORDERABLES Final Result Performing Organization Address [facility] Phone Number INTERFACE SYSTEM Refer to clinic/hospital department * (ABNORMAL) POC ISTAT EG 7+ (02/04/2005 2:55 AM CDT) SPECIMEN TYPE Arterial INTERF JOVANNA SYSTEM Comment: Tidal volume: 700 PEEP: 05 Rate: 14 Pulse OX: 100 FIO2 60 INTERFACE SYSTEM PH 7.41 7.35 - 7.45 Unit INTERFACE SYSTEM PH TEMP CORRECT 7.41 7.35 - 7.45 Unit INTERFACE SYSTEM PCO2 POC 33(L) 35 - 45 mmHg INTERFACE SYSTEM PCO2 TEMP CORRECT 33(L) 35 - 45 mmHg INTERFACE SYSTEM PO2 229(H) 80 - 105 mmHg INTERFACE SYSTEM PO2 TEMP CORRECT 229(H) 80 - 105 mmHg INTERFACE SYSTEM HCO3 (CALC) POC 20.9(L) 22.0 - 26.0 mmol/l INTERFACE SYSTEM BASE EXCESS -4(L) -2 - 3 mmol/l INTERFACE SYSTEM HEMOGLOBIN POC 15.0 13.5 - 18.0 g/dL INTERFACE SYSTEM HEMATOCRIT ABG 44 38 - 51 % INTER FACE SYSTEM O2 SATURATION 100(H) 95 - 98 % INTERF JOVANNA SYSTEM TCO2 (CALC) POC 22(L) 23 - 27 mmol/l INTERFACE SYSTEM SODIUM 136(L) 138 - 146 mEq/L INTERFACE SYSTEM POTASSIUM 3.9 3.5 - 4.9 mEq/L INTERFACE SYSTEM CALCIUM IONIZED 1.14 1.12 - 1.32 mmol/l INTERFACE SYSTEM 02/04/2005 2:55 AM CDT Deshawn Nick MD POINT OF CARE TESTING COM Mary l Result Performing Organization Address City/[facility] Co de Phone Number INTERFACE SYSTEM Refer to clinic/hospital department * PROTIME-INR (02/04/2005 12:49 AM CDT) PROTIME 14.5 12.4 - 14.9 Secs INTERFACE SYSTEM Comment: As of 04 note change in normal range. INR 1.1 INTERFACE SYSTEM Comment: Expected Values for INR: DVT/PE Goal INR 2.5; range 2.0 - 3.0 Valve Replacement Tissue Goal INR 2.5; range 2.0 - 3.0 Mechanical Goal INR 3.0; range 2.5 - 3.5 POST-DC Goal INR 2.5; range 2.0 - 3.0 or Goal 3.0; range 2.5 - 3.5 Atrial Fibrillation Goal INR 2.5; range 2.0 - 3.0 Ischemic Stroke Goal INR 2.5; range 2.0 - 3.0 For additional information see Guidelines for Anticoagulation available from the pharmacy Willa Robertson, Pharm D. 02/04/2005 12:4 9 AM CDT us Deshawn Nick MD HEMATOLOGY ORDERABLES Final Re sult Performing Organization Address [facility] Phone Number INTERFACE SYSTEM Refer to clinic/hospital department * (ABNORMAL) ETHANOL LEVEL (02/04/2005 12:49 AM CDT) ETHANOL 243(H) <=10 mg/dL INTERFACE SYSTEM Comment:Specimen moderately hemolyzed 02/04/2005 12:4 9 AM CDT us Deshawn Nick MD CHEMISTRY ORDERABLES Final Res ult Performing Organization Address [facility] Phone Number INTERFACE SYSTEM Refer to clinic/hospital department * (ABNORMAL) DIFFERENTIAL, MANUAL (02/04/2005 12:49 AM CDT) NEUTROPHILS, SEG 77(H) 36 - 66 % INT ERFACE SYSTEM LYMPHOCYTES 13(L) 24 - 44 percent(coni ctive) INTERFACE SYSTEM MONOCYTE 10 4 - 10 percent(coni ctive) INTERFACE SYSTEM PLATELET EST. Normal Normal INTERF JOVANNA SYSTEM RBC MORPHOLOGY Normal Normal INTER FACE SYSTEM 02/04/2005 12:4 9 AM CDT us Deshawn Nick MD HEMATOLOGY ORDERABLES COM Mary l Result INTERFACE SYSTEM Refer to clinic/hospital department * (ABNORMAL) CBC WITH DIFFERENTIAL (02/04/2005 12:49 AM CDT) WBC 22.6(H) 4.8 - 10.8 K/ul INTERFACE SYSTEM RBC 4.94 4.60 - 6.20 Mil/ul INTERFACE SYSTEM HEMOGLOBIN 15.6 14.0 - 18.0 g/dL INTERFACE SYSTEM HEMATOCRIT 44.7 41.0 - 53.0 % INTERFACE SYSTEM MCV 90.5 84.0 - 103.0 Fl INTERFACE SYSTEM MCH 31.6 27.0 - 34.0 pg INTERFACE SYSTEM MCHC 34.9 30.0 - 35.0 g/dL INTERFACE SYSTEM RDW 12.3 11.0 - 14.5 percent(in active) INTERFACE SYSTEM PLATELETS 322 140 - 440 K/ul INTERFACE SYSTEM MPV 9.8 8.9 - 12.8 Fl INTERFACE SYSTEM NEUTROPHILS 81.2(H) 42.2 - 75.2 percent(in active) INTERFACE SYSTEM LYMPHOCYTES 10.6(L) 24.0 - 44.0 percent(in active) INTERFACE SYSTEM MONOCYTES 7.8 2.0 - 10.0 percent(in active) INTERFACE SYSTEM EOSINOPHILS 0.2 0.0 - 7.0 % INTERFACE SYSTEM BASOPHILS 0.2 0.0 - 1.0 percent(in active) INTERFACE SYSTEM NEUTROPHIL ABSOLUTE 18.3(H) 2.0 - 8.0 K/uL INTERFACE SYSTEM LYMPHOCYTE ABSOLUTE 2.4 1.2 - 4.0 K/ul INTERFACE SYSTEM MONOCYTE ABSOLUTE 1.8(H) 0.1 - 0.6 K/ul INTERFACE SYSTEM EOSINOPHIL ABSOLUTE 0.0 0.0 - 0.7 K/ul INTERFACE SYSTEM BASOPHILS ABSOLUTE 0.0 0.0 - 0.2 K/ul INTERFACE SYSTEM 02/04/2005 12:4 9 AM CDT Deshawn Nick MD HEMATOLOGY ORDERABLES Final Re sult INTERFACE SYSTEM Refer to clinic/hospital department * (ABNORMAL) BASIC METABOLIC PANEL (02/04/2005 12:49 AM CDT) GLUCOSE 129(H) 70 - 110 mg/dL INTERFACE SYSTEM BUN 7(L) 9 - 20 mg/dL INTERFACE SYSTEM CREATININE 1.1 0.7 - 1.5 mg/dL (inactive) INTERFACE SYSTEM SODIUM 143 136 - 145 mEq/L INTERFACE SYSTEM POTASSIUM 3.4(L) 3.5 - 5.0 mEq/L INTERFACE SYSTEM Comment:Specimen moderately hemolyzed CHLORIDE 104 95 - 110 mEq/L INTERFACE SYSTEM CO2 24 22 - 32 mmol/l INTERFACE SYSTEM ANION GAP 18 9 - 20 mEq/L INTERFACE SYSTEM OSMOLALITY, CALCULATED 292 275 - 295 mOsm/Kg INTERFACE SYSTEM CALCIUM 7.8(L) 8.4 - 10.5 mg/dL INTERFACE SYSTEM 02/04/2005 12:4 9 AM CDT Deshawn Nick MD CHEMISTRY ORDERABLES Final Res ult INTERFACE SYSTEM Refer to clinic/hospital department * (ABNORMAL) POC ISTAT EG 7+ (02/04/2005 12:47 AM CDT) SPECIMEN TYPE Arterial INTERF JOVANNA SYSTEM Comment:Pulse OX: 100 FIO2 100 INTERFACE SYSTEM PH 7.34(L) 7.35 - 7.45 Unit INTERFACE SYSTEM PH TEMP CORRECT 7.34(L) 7.35 - 7.45 Unit INTERFACE SYSTEM PCO2 POC 38 35 - 45 mmHg INTERFACE SYSTEM PCO2 TEMP CORRECT 38 35 - 45 mmHg INTERFACE SYSTEM PO2 456(H) 80 - 105 mmHg INTERFACE SYSTEM PO2 TEMP CORRECT 456(H) 80 - 105 mmHg INTERFACE SYSTEM HCO3 (CALC) POC 20.6(L) 22.0 - 26.0 mmol/l INTERFACE SYSTEM BASE EXCESS -5(L) -2 - 3 mmol/l INTERFACE SYSTEM HEMOGLOBIN POC 15.3 13.5 - 18.0 g/dL INTERFACE SYSTEM HEMATOCRIT ABG 45 38 - 51 % INTER FACE SYSTEM O2 SATURATION 100(H) 95 - 98 % INTERF JOVANNA SYSTEM TCO2 (CALC) POC 22(L) 23 - 27 mmol/l INTERFACE SYSTEM SODIUM 137(L) 138 - 146 mEq/L INTERFACE SYSTEM POTASSIUM 3.1(L) 3.5 - 4.9 mEq/L INTERFACE SYSTEM CALCIUM IONIZED 1.13 1.12 - 1.32 mmol/l INTERFACE SYSTEM 02/04/2005 12:4 7 AM CDT us Physician Sj Ed POINT OF CARE TESTING COM Final Result Performing Organization Address City/State/[facility] Co de Phone Number INTERFACE SYSTEM Refer to clinic/hospital department documented in this encounter Visit Diagnoses Diagnosis Closed fracture of base of skull with cerebral laceration and contusion, loss of consciousness of unspecified duration- Primary documented in this encounter
--- OUTSIDE RECORDS SUMMARY | 2025-08-19 12:42 | XMS_ITS | Encounter Summary ---
Author Organization [facility] Address [address] [place] [address] Care Team Providers Care Fixed Income Manager Name Role Phone Unavailable Primary Care Provider Unavailabl e Encounter Details Date Type Department Care Team (Late st Contact Info) Description 03/29/2005 Outpatient Historical [facility] Orthopedics- 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
--- OUTSIDE RECORDS SUMMARY | 2025-08-19 12:42 | XMS_ITS | Encounter Summary ---
Author Organization [facility] Address [address] [place] [address] Care Team Providers Care Quenching Car Operator Name Role Phone Unavailable Primary Care Provider Unavailabl e Reason for Visit * Reason Comments Med Refill Encounter Details Date Type Department Care Team (Late Contact Info) Description 08/14/2025 Refill [facility] [address] [place] [phone] Cely Gould FNP [address] [place] [phone] Episodic mood disorder; Alcohol dependence with unspecified alcohol-induced disorder (HCC) Social History Tobacco Use Types Packs/Day Years Used Date Smoking Tobacco: Every Day Cigarettes 0.5 25.8 Started: 1999 Smokeless Tobacco: Never Comments:Patient encouraged to stop smoking Alcohol Use Standard Drinks/Week Comments Defer 0 (1 standard drink = 0.6 oz pur e alcohol) PHQ-2 Answer Date Recorded PHQ-2 Score 0 07/09/2025 Sex and Gender Information Value Date Recorded Sex Assigned at Not on file 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 Gender Identity Not on file Sexual Orientation Not on file documented as of this encounter Plan of Treatment Upcoming Encounters Date Type Department Care Team (Late Contact Info) Description 09/02/2025 3:00 PM LUMBER BEARER Office Visit [facility] [address] [place] [phone] Cely Gould FNP [address] [place] [phone] documented as of this encounter Visit Diagnoses Diagnosis Episodic mood disorder Unspecified episodic mood disorder Alcohol dependence with unspecified alcohol-induced disorder (HCC) documented in this encounter Additional Health Concerns Health Status Noted Date Alive and well 07/17/2024 Assessment Noted Time PHQ-9 Depression Total Score: 0 07/09/20 25 12:00 PM CDT A fall risk assessment has been complete d for the patient 07/09/2025 12:00 PM CDT documented as of this encounter
--- OUTSIDE RECORDS SUMMARY | 2025-08-19 12:42 | XMS_ITS | Encounter Summary ---
Author Organization [facility] Address [address] [place] [address] Care Team Providers Care Director Industrial Relations Name Role Phone Unavailable Primary Care Provider Unavailabl e Encounter Details Date Type Department Care Team (Latest Contact Info) Description 04/20/2005 Outpatient Historical [facility] Physical Med and Rehab- [address] [address] Audie Espinosa MD [address] [place] [phone] LATE EFFECT INTRACRANIAL INJ (CMS/HCC) (Primary Dx); JOINT DIS NOS-PELVIS Social History Tobacco Use Types Packs/Day Years Used Date Smoking Tobacco: Never Assessed Sex and Gender Information Value Date Recorded Sex Assigned at Not on file 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
--- OUTSIDE RECORDS SUMMARY | 2025-08-19 12:42 | XMS_ITS | Encounter Summary ---
Author Organization [facility] Address [address] [place] [address] Care Team Providers Care Special Forces Medical Sergeant Name Role Phone Unavailable Primary Care Provider Unavailabl e Encounter Details Date Type Department Care Team (Late st Contact Info) Description 02/28/2005 Outpatient Historical [facility] Orthopedics- 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
--- OUTSIDE RECORDS SUMMARY | 2025-08-19 12:42 | XMS_ITS | Encounter Summary ---
Author Organization [facility] Address [address] [place] [address] Care Team Providers Care Physician Office Secretary Name Role Phone Unavailable Primary Care Provider Unavailabl e Reason for Visit * Reason Onset Date Comments Med Refill 06/16/2024 Encounter Details Date Type Department Care Team (Late st Contact Info) Description 06/16/2024 Refill [facility] [place] [facility] [address] [place] [phone] Cely Gould, REGIONAL EDUCATION COORDINATOR [address] [place] [phone] Episodic mood disorder (HCC) Social History Tobacco Use Types Packs/Day Years Used Date Smoking Tobacco: Every Day Cigarettes Smokeless Tobacco: Never Alcohol Use Standard Drinks/Week Comments Defer 0 (1 standard drink = 0.6 oz pur e alcohol) PHQ-2 Answer Date Recorded PHQ-2 Score 6 01/23/2024 Sex and Gender Information Value Date Recorded Sex Assigned at Not on file Legal Sex Male 1:18 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 Gender Identity Not on file Sexual Orientation Not on file documented as of this encounter Miscellaneous Notes * Telephone Encounter - Nilda Villarreal CMA - 06/16/2024 3:35 PM CDT APPT WED documented in this encounter Plan of Treatment Upcoming Encounters Date Type Department Care Team (Late st Contact Info) Description 09/02/2025 3:00 PM MANAGER AUTOMOTIVE Office Visit [facility] [place] [facility] [address] [place] [phone] Cely Gould FNP [address] [place] [phone] documented as of this encounter Visit Diagnoses Diagnosis Episodic mood disorder Unspecified episodic mood disorder documented in this encounter Additional Health Concerns Health Status Noted Date Alive and well 06/18/2024 Assessment Noted Time PHQ-9 Depression Total Score: 13 024 2:45 PM CDT A fall risk assessment has been complete d for the patient 02/10/2024 3:57 PM CDT documented as of this encounter
--- OUTSIDE RECORDS SUMMARY | 2025-08-19 12:42 | XMS_ITS | Clinical Summary ---
Author Organization [facility] Address [address] [address] Phone Care Team Providers Care Screening Tech Name Role Phone Unavailable Primary Care Provider Unavailabl e Allergies Active Allergy Reactions Criticality Noted Date Comments Penicillins Unknown 08/18/2025 Medications QUEtiapine (SEROquel) 100 mg tablet Take 100 mg by mouth daily at bedtime. Active Encounters Date Type Department Care Team Description 08/18/2025 7:58 PM CDT - 08/18/2025 7:59 PM CDT Emergency [facility] [address] [place] [phone] Discharge Disposition: Eloped After Seeing Provider 08/18/2025 11:04 AM CDT - 08/18/2025 12:42 PM CDT [facility] Emergency Medicine [address] [place] [phone] Demetrius Arshad MD Redness and swelling of knee (Primary Dx); Knee injury, left, initial encounter; Elevated uric acid in blood Discharge Disposition: Acute Care Hospital 08/18/2025 Travel from Last 3 Months Immunizations Immunization Administration Dates Next Due (M-M-R II/PRIORIX)(12 MO UP) MEASLES, MUMPS AND RUBELLA VIRUS VACCINE, 0.5 ML IM/SUBCUT 05/27/1979 (TDVAX)(7 YRS UP) TETANUS AN D DIPHTHERIA TOXOIDS, ADSORBED (2 LF OF TETANUS TOXOID AND 2 LF OF DIPHTHERIA TOXOID), 0.5ML (PF), IM 12/12/2004,07/07/1993 Dt Dtp Dtap Vaccine 07/24/1983, 0,1978,1977,1978 Hepatitis A Vaccine 07/26/2005 Hepatitis B Vaccine 08/30/2005,07/26/2005 IPV/OPV 07/24/1983, 0,1978,1977 Social History Tobacco Use Types [...] worry about transportation for future doctor visits, case picker medication, etc.? 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 Gender Identity Not on file Sexual Orientation Not on file Last Filed Vital Signs Vital Sign Reading Time Taken Comments Blood Pressure 157/120 08/18/2025 2:44 PM CDT Pulse 71 08/18/2025 12:30 PM CDT Temperature 36.5 C (97.7 F) 08/18/2025 2:44 PM CDT Respiratory Rate 18 08/18/2025 2:44 PM CDT Oxygen Saturation 99% 08/18/2025 2:44 PM CDT Inhaled Oxygen Concentration - - Weight 77.1 kg (170 lb) 08/18/2025 2:44 PM CDT Height 182.9 cm (6') 08/18/2025 2:44 PM CDT Body Mass Index 23.06 08/18/2025 2:44 PM CDT Plan of Treatment Health Maintenance Due Date Last Done Comments HEPATITIS B VACCINES (1 of 3 - 19+ 3-dose series) 1997 08/30/2005, 07/26/2005 DTAP/TDAP/TD VACCINES (6 - Tdap) 12/13/2004 12/12/2004, 07/07/1993, 07/24/1983, Additional history exists COLORECTAL SCREENING 2023 Colorectal Cancer Screening 2023 FIT-DNA Q 3 years 2023 FIT/FOBT Q 1 year 2023 Flex Sig/CT Colonography Q 5 years 2023 Preventative Visit- Commercial 10/29/2024 INFLUENZA VACCINE (#1) 2025 Procedures Procedure Name Priority Date/Time Associated Diagnosis Comments URIC ACID Stat 08/18/2025 11:30 AM CDT LACTIC ACID Stat 08/18/2025 11:30 AM CDT C-REACTIVE PROTEIN Stat 08/18/2025 11 :30 AM CDT COMPREHENSIVE METABOLIC PANEL Stat 08/18/2025 11:30 AM CDT SEDIMENTATION RATE Stat 08/18/2025 11 :30 AM CDT CBC WITH DIFFERENTIAL Stat 08/18/2025 11:30 AM CDT XR KNEE 3 VW LEFT Stat 08/18/2025 11: 25 AM CDT from Last 3 Months Results * LACTIC ACID (08/18/2025 11:30 AM CDT) LACTIC ACID 1.4 <=2.0 mmol/L 08/18/2025 11:56 AM CDT [facility] Blood BLOOD SPECIMEN / Unknown Collection / Unknown 08/18/2025 11:30 AM CDT 08/18/2025 11:39 AM CDT us Demetrius Arshad MD CHEMISTRY ORDERABLES Final Resu lt [facility] CLIA # [id number] [address] [place] [address] * (ABNORMAL) CBC WITH DIFFERENTIAL (08/18/2025 11:30 AM CDT) WBC 6.2 4.2 - 9.1 K/uL 08/18/2025 11:46 AM [facility] RBC 5.87 4.63 - 6.08 M/uL 08/18/2025 11:46 AM [facility] HEMOGLOBIN 18.4(H) 13.7 - 17.5 g/dL 08/18/2025 11:46 AM [facility] HEMATOCRIT 55.5(H) 40.1 - 51.0 % 08/18/2025 11:46 AM [facility] MCV 94.5(H) 79.0 - 92.2 fL 08/18/2025 11:46 AM [facility] MCH 31.3 25.7 - 32.2 pg 08/18/2025 11:46 AM [facility] MCHC 33.2 32.3 - 36.5 g/dL 08/18/2025 11:46 AM [facility] RDW 13.2 11.0 - 14.5 % 08/18/2025 11:46 AM [facility] RDW-STDEV 46.5 36.9 - 56.9 fL 08/18/2025 11:46 AM [facility] PLATELETS 278 130 - 400 K/uL 08/18/2025 11:46 AM [facility] MPV 9.0(L) 10.0 - 14.8 fL 08/18/2025 11:46 AM [facility] NEUTROPHILS 67 34 - 68 % 08/18/2025 11:46 AM [facility] LYMPHOCYTES 21(L) 22 - 53 % 08/18/2025 11:46 AM T [facility] MONOCYTES 10 5 - 12 % 08/18/2025 11:46 AM T [facility] EOSINOPHILS 1 1 - 7 % 08/18/2025 11:46 AM [facility] BASOPHILS 1 0 - 1 % 08/18/2025 11:46 AM T [facility] IMMATURE GRANULOCYTES 0 % 08/18/2025 11:46 AM T [facility] NEUTROPHIL ABSOLUTE 4.13 1.78 - 5.38 K/uL 08/18/2025 11:46 AM T [facility] LYMPHOCYTE ABSOLUTE 1.27 1.20 - 3.40 K/uL 08/18/2025 11:46 AM [facility] MONOCYTE ABSOLUTE 0.60 0.30 - 0.82 K/uL 08/18/2025 11:46 AM [facility] EOSINOPHIL ABSOLUTE 0.08 0.04 - 0.54 K/uL 08/18/2025 11:46 AM T [facility] BASOPHILS ABSOLUTE 0.06 0.01 - 0.08 K/uL 08/18/2025 11:46 AM [facility] IMMATURE GRANULOCYTES ABSOLUTE 0.02 K/uL 08/18/2025 11:46 AM [facility] Blood Collection / Unknown 08/18/2025 11:30 AM CDT 08/18/2025 11:39 AM CDT us Demetrius Arshad MD HEMATOLOGY ORDERABLES Final Res ult [facility] CLIA # [id number] [address] [place] [address] * SEDIMENTATION RATE (08/18/2025 11:30 AM CDT) ESR (SEDIMENTATION RATE) 3 0 - 15 mm/Hr 08/18/2025 11:51 AM CDT [facility] Blood Collection / Unknown 08/18/2025 11:30 AM CDT 08/18/2025 11:39 AM CDT Narrative [facility] - 08/18/2025 11:51 AM CDT Tube Lot: #[id number] Exp Date: 10/28/2026 QC1 LOT [id number] EXP.11/02/2025 QC2 LOT [id number] EXP.11/02/2025 us Demetrius Arshad MD HEMATOLOGY ORDERABLES Final Res ult [facility] CLIA # [id number] [address] [place] [address] * (ABNORMAL) C-REACTIVE PROTEIN (08/18/2025 11:30 AM CDT) CRP 6.5(H) <5.0 mg/L 08/18/2025 12:00 PM CDT [facility] Blood Collection / Unknown 08/18/2025 11:30 AM CDT 08/18/2025 11:39 AM CDT us Demetrius Arshad MD CHEMISTRY ORDERABLES Final Resu lt Performing Organization Address [facility] Co de Phone Number [facility] CLIA # [id number] [address] [place] [phone] * (ABNORMAL) URIC ACID (08/18/2025 11:30 AM CDT) URIC ACID 7.1(H) 3.4 - 7.0 mg/dL 08/18/2025 12:20 PM CDT [facility] Blood Collection / Unknown 08/18/2025 11:30 AM CDT 08/18/2025 11:39 AM CDT us Demetrius Arshad MD CHEMISTRY ORDERABLES Final Resu lt Performing Organization Address City/[facility]/ZIP Co de Phone Number [facility] CLIA # [id number] [address] [place] [phone] * (ABNORMAL) COMPREHENSIVE METABOLIC PANEL (08/18/2025 11:30 AM T) SODIUM 140 136 - 145 mmol/L 08/18/2025 12:00 PM [facility] POTASSIUM 4.7 3.5 - 5.1 mmol/L 08/18/2025 12:00 PM [facility] CHLORIDE 104 98 - 107 mmol/L 08/18/2025 12:00 PM [facility] CO2 29 22 - 29 mmol/L 08/18/2025 12:00 PM [facility] CALCIUM 9.4 8.6 - 10.0 mg/dL 08/18/2025 12:00 PM [facility] BUN 5(L) 6 - 20 mg/dL 08/18/2025 12:00 PM [facility] CREATININE 0.89 0.67 - 1.17 mg/dL 08/18/2025 12:00 PM [facility] GLUCOSE 87 74 - 99 mg/dL 08/18/2025 12:00 PM [facility] TOTAL PROTEIN 6.3(L) 6.6 - 8.7 g/dL 08/18/2025 12:00 PM [facility] ALBUMIN 4.0 3.5 - 5.2 g/dL 08/18/2025 12:00 PM [facility] BILIRUBIN TOTAL 0.4 0.0 - 1.2 mg/dL 08/18/2025 12:00 PM [facility] ALKALINE PHOSPHATASE 74 40 - 129 U/L 08/18/2025 12:00 PM [facility] AST 14 0 - 50 U/L 08/18/2025 12:00 PM [facility] ALT 12 0 - 50 U/L 08/18/2025 12:00 PM [facility] GFR >60 >=60 mL/min/1.7 3 sq meter 08/18/2025 12:00 PM [facility] Comment:eGFR calculated with 2021 CKD-EPI equation. Vegetarian diet, extremely high or low muscle mass, and may affect results. Cystatin C with Glomerular Filtration Rate is a suitable alternative for these patients. ANION GAP 7 5 - 20 mmol/L 08/18/2025 12:00 PM CDT [facility] Blood Collection / Unknown 08/18/2025 11:30 AM CDT 08/18/2025 11:39 AM CDT us Demetrius Arshad MD CHEMISTRY ORDERABLES Final Resu lt [facility] CLIA # [id number] [address] [place] [address] * XR KNEE 3 VW LEFT (08/18/2025 [...] MD DIAGNOSTIC IMAGING ORDERABLES F inal Result from Last 3 Months Insurance [facility]
--- OUTSIDE RECORDS SUMMARY | 2025-08-19 12:42 | XMS_ITS | Encounter Summary ---
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 Gender Identity Not on file Sexual Orientation Not on file documented as of this encounter Plan of Treatment Not on file documented as of this encounter Procedures Procedure Name Priority Date/Time Associated Diagnosis Comments CBC WITH DIFFERENTIAL Routine 02/13/2005 5:45 AM CDT PHENYTOIN LEVEL, TOTAL Routine 5 5:45 AM CDT HEPATIC FUNCTION PANEL Routine 5 5:45 AM CDT CBC WITH DIFFERENTIAL Routine 02/10/2005 5:45 AM CDT PHENYTOIN LEVEL, TOTAL Routine 200 5 5:45 AM CDT HEPATIC FUNCTION PANEL Routine 5 5:45 AM CDT CBC WITH DIFFERENTIAL Routine 02/08/2005 6:41 AM CDT VITAMIN B12 LEVEL Routine 02/08/2005 6:4 1 AM CDT COMPREHENSIVE METABOLIC PANEL Routine 02/08/2005 6:41 AM CDT URINALYSIS MICROSCOPY ONLY Routine 02/07/2005 10:22 PM CDT URINALYSIS W/REFLEX MICROSCOPIC Routine 02/07/2005 10:22 PM CDT documented in this encounter Results * HEPATIC FUNCTION PANEL (02/13/2005 5:45 AM CDT) ALKALINE PHOSPHATASE 65 38 - 126 IU/L INTERFACE SYSTEM TOTAL PROTEIN 6.6 6.3 - 8.2 g/dL INTERFACE SYSTEM ALBUMIN 3.6 3.5 - 5.0 g/dL INTERFACE SYSTEM AST 34 17 - 59 IU/L INTERFACE SYSTEM ALT 46 21 - 72 IU/L INTERFACE SYSTEM BILIRUBIN TOTAL 0.4 0.2 - 1.4 mg/dL INTERFACE SYSTEM BILIRUBIN DIRECT 0.0 0.0 - 0.4 mg/dL (inactive) INTERFACE SYSTEM 02/13/2005 5:45 AM CDT Audie Espinosa MD CHEMISTRY ORDERABLES Final Resul t Performing Organization Address [facility] Phone Number INTERFACE SYSTEM Refer to clinic/hospital department * (ABNORMAL) PHENYTOIN LEVEL, TOTAL (02/13/2005 5:45 AM CDT) Pathologist [facility] PHENYTOIN TOTAL 4.0(L) 10.0 - 20.0 ug/mL INTERFACE SYSTEM 02/13/2005 5:45 AM CDT Audie Espinosa MD CHEMISTRY ORDERABLES Final Resul t Performing Organization Address [facility] Phone Number INTERFACE SYSTEM Refer to clinic/hospital department * (ABNORMAL) CBC WITH DIFFERENTIAL (02/13/2005 5:45 AM CDT) Pathologist [facility] WBC 7.4 4.5 - 11.0 K/ul INTERFACE SYSTEM RBC 4.34(L) 4.60 - 6.20 Mil/ul INTERFACE SYSTEM HEMOGLOBIN 13.3(L) 14.0 - 18.0 g/dL INTERFACE SYSTEM HEMATOCRIT 39.4(L) 41.0 - 53.0 % INTERFACE SYSTEM MCV 90.8 84.0 - 103.0 Fl INTERFACE SYSTEM MCH 30.6 27.0 - 34.0 pg INTERFACE SYSTEM MCHC 33.8 30.0 - 35.0 g/dL INTERFACE SYSTEM RDW 12.3 11.0 - 14.5 percent(in active) INTERFACE SYSTEM PLATELETS 427 140 - 440 K/ul INTERFACE SYSTEM MPV 9.4 8.9 - 12.8 Fl INTERFACE SYSTEM NEUTROPHILS 64.9 42.2 - 75.2 percent(in active) INTERFACE SYSTEM LYMPHOCYTES 21.8(L) 24.0 - 44.0 percent(in active) INTERFACE SYSTEM MONOCYTES 10.5(H) 2.0 - 10.0 percent(in active) INTERFACE SYSTEM EOSINOPHILS 1.6 0.0 - 7.0 % INTERFACE SYSTEM BASOPHILS 1.2(H) 0.0 - 1.0 percent(in active) INTERFACE SYSTEM NEUTROPHIL ABSOLUTE 4.8 2.0 - 8.0 K/uL INTERFACE SYSTEM LYMPHOCYTE ABSOLUTE 1.6 1.2 - 4.0 K/ul INTERFACE SYSTEM MONOCYTE ABSOLUTE 0.8(H) 0.1 - 0.6 K/ul INTERFACE SYSTEM EOSINOPHIL ABSOLUTE 0.1 0.0 - 0.7 K/ul INTERFACE SYSTEM BASOPHILS ABSOLUTE 0.1 0.0 - 0.2 K/ul INTERFACE SYSTEM 02/13/2005 5:45 AM CDT us Audie Espinosa MD HEMATOLOGY ORDERABLES Final Resu lt INTERFACE SYSTEM Refer to clinic/hospital department * (ABNORMAL) CBC WITH DIFFERENTIAL (02/10/2005 5:45 AM CDT) WBC 10.4 4.5 - 11.0 K/ul INTERFACE SYSTEM RBC 4.36(L) 4.60 - 6.20 Mil/ul INTERFACE SYSTEM HEMOGLOBIN 13.5(L) 14.0 - 18.0 g/dL INTERFACE SYSTEM HEMATOCRIT 38.7(L) 41.0 - 53.0 % INTERFACE SYSTEM MCV 88.8 84.0 - 103.0 Fl INTERFACE SYSTEM MCH 31.0 27.0 - 34.0 pg INTERFACE SYSTEM MCHC 34.9 30.0 - 35.0 g/dL INTERFACE SYSTEM RDW 12.2 11.0 - 14.5 percent(in active) INTERFACE SYSTEM PLATELETS 413 140 - 440 K/ul INTERFACE SYSTEM MPV 9.6 8.9 - 12.8 Fl INTERFACE SYSTEM NEUTROPHILS 73.5 42.2 - 75.2 percent(in active) INTERFACE SYSTEM LYMPHOCYTES 14.6(L) 24.0 - 44.0 percent(in active) INTERFACE SYSTEM MONOCYTES 10.1(H) 2.0 - 10.0 percent(in active) INTERFACE SYSTEM EOSINOPHILS 1.3 0.0 - 7.0 % INTERFACE SYSTEM BASOPHILS 0.5 0.0 - 1.0 percent(in active) INTERFACE SYSTEM NEUTROPHIL ABSOLUTE 7.7 2.0 - 8.0 K/uL INTERFACE SYSTEM LYMPHOCYTE ABSOLUTE 1.5 1.2 - 4.0 K/ul INTERFACE SYSTEM MONOCYTE ABSOLUTE 1.1(H) 0.1 - 0.6 K/ul INTERFACE SYSTEM EOSINOPHIL ABSOLUTE 0.1 0.0 - 0.7 K/ul INTERFACE SYSTEM BASOPHILS ABSOLUTE 0.1 0.0 - 0.2 K/ul INTERFACE SYSTEM 02/10/2005 5:45 AM CDT Audie Espinosa MD HEMATOLOGY ORDERABLES Final Resu lt Performing Organization Address City/[facility] [[email or web address]] Co de Phone Number INTERFACE SYSTEM Refer to clinic/hospital department * HEPATIC FUNCTION PANEL (02/10/2005 5:45 AM CDT) ALKALINE PHOSPHATASE 63 38 - 126 IU/L INTERFACE SYSTEM TOTAL PROTEIN 6.6 6.3 - 8.2 g/dL INTERFACE SYSTEM ALBUMIN 3.7 3.5 - 5.0 g/dL INTERFACE SYSTEM AST 43 17 - 59 IU/L INTERFACE SYSTEM ALT 52 21 - 72 IU/L INTERFACE SYSTEM BILIRUBIN TOTAL 0.7 0.2 - 1.4 mg/dL INTERFACE SYSTEM BILIRUBIN DIRECT <0.1 0.0 - 0.4 mg/dL (inactive) INTERFACE SYSTEM 02/10/2005 5:45 AM CDT Audie Espinosa MD CHEMISTRY ORDERABLES Final Resul t INTERFACE SYSTEM Refer to clinic/hospital department * (ABNORMAL) PHENYTOIN LEVEL, TOTAL (02/10/2005 5:45 AM CDT) PHENYTOIN TOTAL <3.0(L) 10.0 - 20.0 ug/mL INTERFACE SYSTEM 02/10/2005 5:45 AM CDT Audie Espinosa MD CHEMISTRY ORDERABLES Final Resul t Performing Organization Address City/[facility]/ZIP Co de Phone Number INTERFACE SYSTEM Refer to clinic/hospital department * VITAMIN B12 (02/08/2005 6:41 AM CDT) VITAMIN B12 843 200 - 925 ng/dL INTERFACE SYSTEM 02/08/2005 6:41 AM CDT Audie Espinosa MD CHEMISTRY ORDERABLES Final Resul t Performing Organization Address [facility] [[email or web address]] Co de Phone Number INTERFACE SYSTEM Refer to clinic/hospital department * (ABNORMAL) COMPREHENSIVE METABOLIC PANEL (02/08/2005 6:41 AM CDT) GLUCOSE 142(H) 70 - 110 mg/dL INTERFACE SYSTEM BUN 12 9 - 20 mg/dL INTERFACE SYSTEM CREATININE 1.0 0.7 - 1.5 mg/dL (inactive) INTERFACE SYSTEM SODIUM 140 136 - 145 mEq/L INTERFACE SYSTEM POTASSIUM 3.6 3.5 - 5.0 mEq/L INTERFACE SYSTEM CO2 30 22 - 32 mmol/l INTERFACE SYSTEM CHLORIDE 97 95 - 110 mEq/L INTERFACE SYSTEM CALCIUM 9.5 8.4 - 10.5 mg/dL INTERFACE SYSTEM ALKALINE PHOSPHATASE 62 38 - 126 IU/L INTERFACE SYSTEM TOTAL PROTEIN 8.0 6.3 - 8.2 g/dL INTERFACE SYSTEM ALBUMIN 4.3 3.5 - 5.0 g/dL INTERFACE SYSTEM AST 88(H) 17 - 59 IU/L INTERFACE SYSTEM ALT 68 21 - 72 IU/L INTERFACE SYSTEM BILIRUBIN TOTAL 0.9 0.2 - 1.4 mg/dL INTERFACE SYSTEM GLOBULIN (CALC) 3.7 2.4 - 3.9 g/dL INTERFACE SYSTEM ANION GAP 17 9 - 20 mEq/L INTERFACE SYSTEM ALBUMIN/GLOBULIN RATIO 1.2 1.0 - 2.3 INTERFACE SYSTEM OSMOLALITY, CALCULATED 289 275 - 295 mOsm/Kg INTERFACE SYSTEM 02/08/2005 6:41 AM CDT Audie Espinosa MD CHEMISTRY ORDERABLES Final Resul t INTERFACE SYSTEM Refer to clinic/hospital department * (ABNORMAL) CBC WITH DIFFERENTIAL (02/08/2005 6:41 AM CDT) WBC 10.0 4.5 - 11.0 K/ul INTERFACE SYSTEM RBC 5.01 4.60 - 6.20 Mil/ul INTERFACE SYSTEM HEMOGLOBIN 15.8 14.0 - 18.0 g/dL INTERFACE SYSTEM HEMATOCRIT 45.1 41.0 - 53.0 % INTERFACE SYSTEM MCV 90.0 84.0 - 103.0 Fl INTERFACE SYSTEM MCH 31.5 27.0 - 34.0 pg INTERFACE SYSTEM MCHC 35.0 30.0 - 35.0 g/dL INTERFACE SYSTEM RDW 12.2 11.0 - 14.5 percent(in active) INTERFACE SYSTEM PLATELETS 453(H) 140 - 440 K/ul INTERFACE SYSTEM MPV 9.8 8.9 - 12.8 Fl INTERFACE SYSTEM NEUTROPHILS 73.9 42.2 - 75.2 percent(in active) INTERFACE SYSTEM LYMPHOCYTES 14.4(L) 24.0 - 44.0 percent(in active) INTERFACE SYSTEM MONOCYTES 9.7 2.0 - 10.0 percent(in active) INTERFACE SYSTEM EOSINOPHILS 1.4 0.0 - 7.0 % INTERFACE SYSTEM BASOPHILS 0.6 0.0 - 1.0 percent(in active) INTERFACE SYSTEM NEUTROPHIL ABSOLUTE 7.4 2.0 - 8.0 K/uL INTERFACE SYSTEM LYMPHOCYTE ABSOLUTE 1.4 1.2 - 4.0 K/ul INTERFACE SYSTEM MONOCYTE ABSOLUTE 1.0(H) 0.1 - 0.6 K/ul INTERFACE SYSTEM EOSINOPHIL ABSOLUTE 0.1 0.0 - 0.7 K/ul INTERFACE SYSTEM BASOPHILS ABSOLUTE 0.1 0.0 - 0.2 K/ul INTERFACE SYSTEM 02/08/2005 6:41 AM CDT Audie Espinosa MD HEMATOLOGY ORDERABLES Final Resu lt INTERFACE SYSTEM Refer to clinic/hospital department * (ABNORMAL) URINALYSIS (02/07/2005 10:22 PM CDT) COLOR UA Yellow Straw INTERFACE SYSTEM CLARITY UA Clear Clear INTERFACE SYSTEM LEUKOCYTE ESTERASE UA Trace(A) NEGATIVE INTERFACE SYSTEM NITRITE UA NEGATIVE NEGATIVE INTERFACE SYSTEM PH UA 7.0 5.0 - 9.0 INTERFACE SYSTEM PROTEIN UA NEGATIVE NEGATIVE INTERFACE SYSTEM GLUCOSE UA NEGATIVE NEGATIVE INTERFACE SYSTEM KETONES UA NEGATIVE NEGATIVE INTERFACE SYSTEM UROBILINOGEN UA 0.2 INTE RFACE SYSTEM BILIRUBIN UA NEGATIVE NEGATIVE INTERFA CE SYSTEM BLOOD UA Trace(A) NEGATIVE INTERFACE SYSTEM SPECIFIC GRAVITY UA 1.010 1.005 - 1.030 INTERFACE SYSTEM MICRO EXAM Yes(A) No INTERFACE SYSTEM 02/07/2005 10:2 2 PM CDT Audie Espinosa MD URINE ORDERABLES Final Result Performing Organization Address [facility] Phone Number INTERFACE SYSTEM Refer to clinic/hospital department * URINALYSIS MICROSCOPY ONLY (02/07/2005 10:22 PM CDT) WBC URINE 0-2 0 - 2 INTERFACE SYSTEM RBC UA 0-2 0 - 2 INTERFACE SYSTEM HYALINE CAST None Seen 0 - 2 INTERFA CE SYSTEM 02/07/2005 10:2 2 PM CDT Audie Espinosa MD URINE ORDERABLES Final Result Performing Organization Address [facility] Phone Number INTERFACE SYSTEM Refer to clinic/hospital department documented in this encounter Visit Diagnoses Diagnosis Other specified rehabilitation procedure(V57.89)- Primary Other specified rehabilitation procedure documented in this encounter
--- OUTSIDE RECORDS SUMMARY | 2025-08-19 12:42 | XMS_ITS | Encounter Summary ---
Author Organization [facility] Address [address] [place] [address] Care Team Providers Care Imaging Engineer Name Role Phone Unavailable Primary Care Provider Unavailabl e Encounter Details Date Type Department Care Team (Latest Contact Info) Description 03/20/2005 Outpatient Historical [facility] General and Trauma Surgery-[address] [place] [address] Mahendra Figueroa MD NO ADDRESS ON FILE SURGERY FOLLOWUP, UNSPEC (Primary Dx) Social History Tobacco Use Types Packs/Day Years Used Date Smoking Tobacco: Never Assessed Sex and Gender Information Value Date Recorded Sex Assigned at Not on file 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
--- OUTSIDE RECORDS SUMMARY | 2025-08-19 12:42 | XMS_ITS | Clinical Summary ---
Author Organization [employer] Address [address] 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
--- NOTE | 2025-08-20 07:52 | DCPLANNER ---
messaged ortho for er f/u
== END 2025-08-19 12:01 | disposition home or self-care (01) ==
PROVIDERS: Emergency Provider Emergency Medicine
DX: S83.92XA Sprain of unspecified site of left knee, initial encounter (principal); W05.1XXA Fall from non-moving nonmotorized scooter, initial encounter
CPT/HCPCS: 73562; 99283; J9999